=== PATIENT | female | born 1980 | race Caucasian/White ===

== ENCOUNTER 2021-06-05 01:12 | Day surgery (SDC) | payer BC, SELFPAY ==
[2021-06-03 15:16] VITALS: BMI 34.0
--- NOTE | 2021-06-04 13:55 | WPDANESEPPF ---
Anes - Initial Pre Proc Eval Procedure: Operation Date: 06/05/21 12:00 Proposed Procedures p Hysteroscopy, Dilatation and Curettage, Removal of Intrauterine Device, Possible Insert of Intrauterine Device - Jhon Cook MD Date/Time: 06/04/21 13:55 Surgeon: Jhon Cook MD Pre Op Diagnosis: Excessive Bleeding Patient Data Age: 40 Gender: F Height: 1.6 m Weight: 87.09 kg Allergies Allergy/AdvReac Type Severity Reaction Status Date / Time No Known Allergies Allergy Verified 06/05/21 10:05 Home Medications Medication Instructions Recorded Confirmed Type B Complex-Vitamin B12 1,000 mcg PO DAILY 06/03/21 06/03/21 History albuterol sulfate 1 puff INHALATION BID 06/03/21 06/03/21 History amitriptyline 50 mg PO HS 06/03/21 06/03/21 History apixaban [Eliquis] 5 mg PO BID 06/03/21 06/03/21 History [id number]-zmzbeshrbghhe-tdpdbvyr 1 tablet PRN 06/03/21 06/05/21 History [Excedrin Extra Strength] cetirizine [Zyrtec] 10 mg PO DAILY 06/03/21 06/03/21 History cyclosporine [Restasis] 1 drp EACH EYE Q12H 06/03/21 06/03/21 History duloxetine 60 mg PO DAILY 06/03/21 06/03/21 History furosemide 40 mg PO BID 06/03/21 06/03/21 History montelukast [Singulair] 10 mg PO DAILY 06/03/21 06/03/21 History multivitamin [Daily Multi-Vitamin] 1 tablet PO DAILY 06/03/21 06/03/21 History oxybutynin chloride 5 mg PO DAILY 06/03/21 06/03/21 History pantoprazole 40 mg PO DAILY 06/03/21 06/03/21 History topiramate 50 mg PO BID 06/03/21 06/03/21 History Patient hx anesthesia problems: post op nausea/vomiting Family hx anesthesia problems: none PMFSH Past Medical History Medical History (Updated 06/04/21 @ 13:57 by Armando Odell DO) Anxiety Asthma Depression GERD (gastroesophageal reflux disease) PONV (postoperative nausea and vomiting) Pulmonary embolism january 2021 Pulmonary hypertension Seizure Surgical History Surgical History (Updated 06/04/21 @ 13:57 by Armando Odell DO) History of History of cardiac cath S/P cervical spinal fusion 01/2021 Social History Social History Smoking status: Never smoker Alcohol intake: unknown Alcohol use details: rarely Substance use: never Substance use type: does not use Living arrangements: with family Gender identity (if verbalized by the patient): Female Sexual Orientation (if Verbalized by the Patient): Straight or Heterosexual Spiritual care concerns: No Anes - Eval Final PreProcedure Day of Procedure 06/04/21 13:55 Patient weight: obese Heart: regular rate and rhythm Lungs: clear to auscultation and normal air movement Airway: Mallampati scale class II Neurological: alert and oriented Last oral intake: >/= 8 hours ASA classification: III Emergent: no Anesthetic plan: proceed Anesthesia type and monitoring: general GIVS and standard monitoring Informed Consent: The patient's anesthetic plan and its attendant risks and benefits were discussed with the patient/family/POA. Questions were solicited and answers provided to the satisfaction of the patient/family/POA.
--- NOTE | ~2021-06-05 | XR_ITS ---
EXAMINATION: XR abdomen/kub 1V EXAM DATE: 06/05/2021 13:34 INDICATION: Location of IUD. TECHNIQUE: Frontal projection(s) of the abdomen for interpretation. There is no prior study for fidencio roth. FINDINGS: No radiopaque foreign bodies identified. There is expected amount of colonic stool and ga s. No small bowel dilation, nonobstructive bowel gas pattern. There are no suspicious calcificati ons identified. There is no organomegaly suspected. The bones are unremarkable. IMPRESSION: No radiopaque foreign bodies identified. Reviewed, dictated and finalized at location A.
--- NOTE | 2021-06-05 09:57 | ECG_ITS ---
Measurements Intervals Cook Rate: 69 P: 9 VT: 135 QRS: 8 QRSD: 83 T: 13 QT: 403 QTc: 435 Interpretive Statements SINUS RHYTHM NORMAL ECG Electronically Signed On 06-05-2021 10:53:44 CDT by Karlo Gurrola D.O.
[2021-06-05] MEDS: ACETAMINOPHEN 500 MG TABLET 1000 MG PO (10:06)
[2021-06-05 10:41] VITALS: BP 110/62; PULSE 73; RESP 18; TEMP 36.4; O2SAT 100; BMI 34.2
[2021-06-05] MEDS: LACTATED RINGERS 1,000 ML 30 ML IV CONT ×3 (10:45→13:21)
[2021-06-05 11:08] LABS: Anion Gap 7 mmol/L (8-16); Blood Urea Nitrogen 12 mg/dL (7-17); Calcium 8.6 mg/dL (8.4-10.2); Carbon Dioxide 24 mmol/L (22-30); Chloride 103 mmol/L (98-107); Estimated CRCL calculation 96 ml/min; Estimated Glomerular Filt Rate > 60; Glucose 100 mg/dL (65-110); Potassium 3.9 mmol/L (3.4-5.0); Sodium 134 mmol/L (137-145)
--- NOTE | 2021-06-05 12:09 | PM.IMHP ---
H&P: HPI History of Present Illness Date/Time: 06/05/21 12:09 40 y/o on Eliquis for history of PE x 2. Now with heavy menses every day for about 3-4 weeks. Has progestin IUD. Chief Complaint: Heavy bleeding Review of Systems Review of Systems: All systems reviewed & are unremarkable except as noted in HPI and below PMFSH Past Medical History Medical History Anxiety Asthma Depression GERD (gastroesophageal reflux disease) PONV (postoperative nausea and vomiting) Pulmonary embolism january 2021 Pulmonary hypertension Seizure Surgical History Surgical History History of History of cardiac cath S/P cervical spinal fusion 01/2021 Social History Social History Smoking status: Never smoker Alcohol intake: unknown Alcohol use details: rarely Substance use: never Substance use type: does not use Living arrangements: with family Gender identity (if verbalized by the patient): Female Sexual Orientation (if Verbalized by the Patient): Straight or Heterosexual Spiritual care concerns: No Meds Home Medications and Allergies Home Medications Medication Instructions Recorded Confirmed Type B Complex-Vitamin B12 1,000 mcg PO DAILY 06/03/21 06/03/21 History albuterol sulfate 1 puff INHALATION BID 06/03/21 06/03/21 History amitriptyline 50 mg PO HS 06/03/21 06/03/21 History apixaban [Eliquis] 5 mg PO BID 06/03/21 06/03/21 History [id number]-[id number] 1 tablet PRN 06/03/21 06/05/21 History [Excedrin Extra Strength] cetirizine [Zyrtec] 10 mg PO DAILY 06/03/21 06/03/21 History cyclosporine [Restasis] 1 drp EACH EYE Q12H 06/03/21 06/03/21 History duloxetine 60 mg PO DAILY 06/03/21 06/03/21 History furosemide 40 mg PO BID 06/03/21 06/03/21 History montelukast [Singulair] 10 mg PO DAILY 06/03/21 06/03/21 History multivitamin [Daily Multi-Vitamin] 1 tablet PO DAILY 06/03/21 06/03/21 History oxybutynin chloride 5 mg PO DAILY 06/03/21 06/03/21 History pantoprazole 40 mg PO DAILY 06/03/21 06/03/21 History topiramate 50 mg PO BID 06/03/21 06/03/21 History Allergies Allergy/AdvReac Type Severity Reaction Status Date / Time No Known Allergies Allergy Verified 06/05/21 10:05 Vital Signs Vital Signs - 24 hr 06/05/21 10:41 Temperature 36.4 C Pulse Rate 73 Respiratory Rate 18 Blood Pressure 110/62 Pulse Oximetry 100 H&P: Results Labs Labs: [facility] 06/05/21 10:36 Sodium 134 L Potassium 3.9 Chloride 103 Carbon Dioxide 24 BUN 12 Creatinine 0.70 Glucose 100 Calcium 8.6 Assessment and Plan Assessment and plan (1) Episode of heavy vaginal bleeding: Code(s): N93.9 - Abnormal uterine and vaginal bleeding, unspecified Status: Acute Assessment and Plan: A: Heavy vaginal bleeding in setting of anticoagulation, progestin-containing implant. P: Offered hysteroscopy, dilation and sharp curettage, removal of IUD, possible replacement of IUD. She understands risks of surgery to include risks of anesthesia, risks of pain, infection, bleeding, blood products, thromboembolic phenomena and damage to adjacent structures such as bowel, bladder, ureters, blood vessels and nerves. She understands all these risks and elects to proceed with surgery.
--- NOTE | 2021-06-05 12:12 | WPDHPUPDATE1 ---
History and Physical Update Update Date/Time: 06/05/21 12:12 History and Physical has been reviewed, including an updated exam of the patient. There are NO changes in the patient's condition. Risks, benefits, and alternatives have been discussed and questions answered. Patient agrees to proceed with procedure.
--- NOTE | 2021-06-05 12:17 | PM.IMHP ---
H&P: HPI History of Present Illness Date/Time: 06/05/21 12:17 Review of Systems Review of Systems: All systems reviewed & are unremarkable except as noted in HPI and below PMFSH Past Medical History Medical History Anxiety Asthma Depression GERD (gastroesophageal reflux disease) PONV (postoperative nausea and vomiting) Pulmonary embolism january 2021 Pulmonary hypertension Seizure Surgical History Surgical History History of History of cardiac cath S/P cervical spinal fusion 01/2021 Social History Social History Smoking status: Never smoker Alcohol intake: unknown Alcohol use details: rarely Substance use: never Substance use type: does not use Living arrangements: with family Gender identity (if verbalized by the patient): Female Sexual Orientation (if Verbalized by the Patient): Straight or Heterosexual Spiritual care concerns: No Meds Home Medications and Allergies Home Medications Medication Instructions Recorded Confirmed Type B Complex-Vitamin B12 1,000 mcg PO DAILY 06/03/21 06/03/21 History albuterol sulfate 1 puff INHALATION BID 06/03/21 06/03/21 History amitriptyline 50 mg PO HS 06/03/21 06/03/21 History apixaban [Eliquis] 5 mg PO BID 06/03/21 06/03/21 History [id number]-qznyopdoyqyef-yqoxrsej 1 tablet PRN 06/03/21 06/05/21 History [Excedrin Extra Strength] cetirizine [Zyrtec] 10 mg PO DAILY 06/03/21 06/03/21 History cyclosporine [Restasis] 1 drp EACH EYE Q12H 06/03/21 06/03/21 History duloxetine 60 mg PO DAILY 06/03/21 06/03/21 History furosemide 40 mg PO BID 06/03/21 06/03/21 History montelukast [Singulair] 10 mg PO DAILY 06/03/21 06/03/21 History multivitamin [Daily Multi-Vitamin] 1 tablet PO DAILY 06/03/21 06/03/21 History oxybutynin chloride 5 mg PO DAILY 06/03/21 06/03/21 History pantoprazole 40 mg PO DAILY 06/03/21 06/03/21 History topiramate 50 mg PO BID 06/03/21 06/03/21 History Allergies Allergy/AdvReac Type Severity Reaction Status Date / Time No Known Allergies Allergy Verified 06/05/21 10:05 Vital Signs Vital Signs - 24 hr 06/05/21 10:41 Temperature 36.4 C Pulse Rate 73 Respiratory Rate 18 Blood Pressure 110/62 Pulse Oximetry 100 Exam Const: Orientation/consciousness: patient oriented x3 Other: Well-developed, well-nourished female in no acute distress. Neck: Thyroid: thyroid normal Lymphatic: no lymphadenopathy noted (in neck, axilla or inguinal nodes) Resp: Effort & Inspection: normal respiratory effort Auscultation: clear to auscultation bilaterally Cardio: Rate: regular rate Rhythm: regular rhythm Heart sounds: S1 normal heart sound present and S2 normal heart sound present GI: Other: ABD: Soft, nontender, nondistended. No guarding or rebound tenderness. No hepatosplenomegaly. : General: Yes no CVA tenderness Other: Deferred to OR Back/Spine/Pelvis: Back: no CVA tenderness Skin: General skin exam: normal color and no rashes or lesions noted Neuro: General: patient oriented x3 Extrem: Other: Extremities: nontender with no edema Psych: Mental Status: mental status grossly normal Affect: normal affect H&P: Results Labs Labs: [facility] 06/05/21 10:36 Sodium 134 L Potassium 3.9 Chloride 103 Carbon Dioxide 24 BUN 12 Creatinine 0.70 Glucose 100 Calcium 8.6
[2021-06-05 12:50] VITALS: BP 116/67; PULSE 85; RESP 16; O2SAT 95
--- NOTE | 2021-06-05 12:51 | P.OP_ITS ---
Procedure Note - Detailed Date of Procedure 06/05/21 Pre-op Diagnosis Heavy episode of vaginal bleeding Post-op Diagnosis same Procedure Performed Hysteroscopy, dilation and sharp curettage Surgeon Jhon Cook MD Anesthesia MAC and local (1% lidocaine paracervical block) Findings Unremarkable endometrium. Both tubal ostia seen. No IUD in endometrial cavity. Description of Procedure The patient was taken to the operating room where she was prepared and draped in the usual sterile fashion in the dorsal lithotomy position. The bladder was drained with a red rubber catheter. A sterile speculum was placed into the vagina. The anterior lip of the cervix was grasped with single-tooth tenaculum. Ten mL of 1% lidocaine was administered in a paracervical block. The cervix was then gently dilated using Hegar dilators until an 8 mm dilator could be pas sed. Hysteroscopy was performed using sterile saline as a distention medium. Findings are as noted above. Sharp curettage was then performed, and endometrial curettings were collected on a Telfa pad and passed off to be sent to pathology. Hemostasis was excellent. Sponge, lap, needle and instrument counts were correct. The patient was awakened and taken to the recovery room in stable condition. I was present and scrubbed through the entire procedure. Plan a KUB in recovery to evaluate for IUD location. Implants None Estimated Blood Loss 10 Drains No Packing No Pathology yes (endometrial curettings) Complications None Condition stable Disposition PACU
[2021-06-05] MEDS: fentaNYL CITRATE INJ (*CRX) 100 MCG/2 ML VIAL 25 MCG IV PUSH (13:07)
[2021-06-05] MEDS: ONDANSETRON INJ 4 MG/2 ML VIAL IV PUSH (13:18)
[2021-06-05 13:20] VITALS: BP 112/69; PULSE 84; RESP 16; O2SAT 97
--- NOTE | 2021-06-05 13:27 | SUR.PHASEII ---
PORTABLE KUB DONE.
[2021-06-05 13:50] VITALS: BP 103/63; PULSE 58; RESP 16
[2021-06-05 14:20] VITALS: BP 109/65; BP 115/62; PULSE 58; PULSE 66; RESP 16
[2021-06-05 14:50] VITALS: BP 119/68; PULSE 71; RESP 16
--- NOTE | 2021-06-05 14:56 | SUR.PHASEII ---
PATIENT MORE AWAKE, ALERT NOW. DENIES NAUSEA. TAKING SNACK IN RECLINER.
[2021-06-05] MEDS: oxyCODONE HCL (*CRX) 5 MG TAB IR PO (15:08)
== END 2021-06-05 15:25 | disposition home or self-care (01) ==
PROVIDERS: Anesthesiology; PCP Family Medicine; Visit Provider Obstetrics & Gynecology
PROC: 0U5B8ZZ Destruction of Endometrium, Via Natural or Artificial Opening Endoscopic (ICD-10-PCS; CPT 58563; principal; 2021-06-05 12:00)
DX: N93.9 Abnormal uterine and vaginal bleeding, unspecified (principal); K21.9 Gastro-esophageal reflux disease without esophagitis; J45.909 Unspecified asthma, uncomplicated; F32.9 Major depressive disorder, single episode, unspecified; F41.9 Anxiety disorder, unspecified; I27.20 Pulmonary hypertension, unspecified; E66.9 Obesity, unspecified; Z68.34 Body mass index [BMI] 34.0-34.9, adult; Z86.711 Personal history of pulmonary embolism; Z79.01 Long term (current) use of anticoagulants; Z79.82 Long term (current) use of aspirin; Z79.899 Other long term (current) drug therapy; Z95.5 Presence of coronary angioplasty implant and graft
CPT/HCPCS: 58558; 36415; 74018; 80048; 88305; 93005; A9270; J1100; J1200; J1630; J2250; J2405; J2704; J3010; J7030; J7120

== ENCOUNTER 2021-12-12 08:01 | Outpatient (CLI) | payer BC, SELFPAY ==
--- NOTE | 2021-12-13 12:32 | WPDSIXMINUTE ---
Six Minute Walk Procedure Procedure Performed Pulmonary Stress Test (6 min walk) Six Minute Walk This 6 minute walk test was carried out with the patient breathing ambient air. The pre walk oxyhemoglobin saturation was 95%. The patient walked 320 meter with no stops recorded. During the walk the oxyhemoglobin saturation remained over 98%. The perceived pre walk dyspnea was 0 on the Yarely scale and increased to 4 at the end of the walk. Impression: No evidence of oxyhemoglobin desaturation on this testing.
== END 2021-12-12 08:02 | disposition home or self-care (01) ==
LOC: ANHPFT 08:02
PROVIDERS: PCP Family Medicine
DX: J45.909 Unspecified asthma, uncomplicated (principal); R06.00 Dyspnea, unspecified; R09.02 Hypoxemia
CPT/HCPCS: 94618

== ENCOUNTER 2022-02-07 13:30 | Outpatient (RCR) | payer BC, SELFPAY ==
[2021-12-20 15:57] LABS: Glucose Point of Care 96 mg/dl (65-105)
== END 2022-02-07 23:59 | disposition home or self-care (01) ==
LOC: ANHCPREHAB 13:30
PROVIDERS: PCP Family Medicine
DX: J45.998 Other asthma (principal); R06.00 Dyspnea, unspecified; R09.02 Hypoxemia
CPT/HCPCS: 94625; G0239